=== PATIENT | male | born 1945 | race Caucasian/White ===

== ENCOUNTER 2020-11-05 21:42 | Observation (INO) | payer OTHER ==
--- OUTSIDE RECORDS SUMMARY | 2020-11-05 21:46 | XMS REPORT | Continuity of Care Document ---
:1945 Author Organization [facility] t Address [address] [place] [address] Care Team Providers Name Role Phone Asked, No Pcp Primary Care Physician Unavailable VANESA Attending Clinician Unavailable Payers Payer Name Policy Type Policy Effective Date Expiration Date Sour ce Number MEDICAREMEDICARE PART [id number] 2012 Jesus hank Barros AND 00:00:00 [facility] [id number] 2012[place] [place] COUSAA [id number] 2017 [place] LIFE INS 00:00:00 Restoration[facility] [id number] 2017- PresentCommercial Problems Condition Condition Condition Status Onset Resolution Last Treating Co mments Source Name Details Category Date Date Treatment Clinician Date 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 4-29 Family prostate Prostate 00:00: Practi c 00 e 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 Me thodi anterior anterior 00:00: st column of column of 00 spine 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 However the patient has multiple risk factors including age, family HX, untreated dyslipidem ia and HTN. His EKG showed abnormalit ies and he can not walk on the treadmill. Will order Lexiscan Cardiolite test to rule out ischemia. [facility] Hypertensi Problem Active 2013-06-09 M emoria on 21:45:35 l [place] Hypertensi on Active 06/09/2013 [facility] Carotid Problem Active 2013-06-09 Abdullahi basilia Bruit 21:45:35 l Carotid [place] Bruit Active 3 [facility] Murmurs Problem Active 2013-06-09 Abdullahi basilia 21:45:35 l Murmurs [place] Active 3 [facility] Cardiac Problem Active 2013-05-22 Abdullahi basilia Evaluation 17:15:25 l Nonspecifi Cardiac Her [place] c Abnormal Evaluation Findings Nonspecifi c Abnormal Findings Active 3 [facility] Fatigue Problem Active 2013-06-09 Abdullahi basilia 21:45:35 l Fatigue [place] Active 3 [facility] Bradycardi Problem Active 2020-08-20 emoria a, 05:10:27 l unspecifie Andrez n d Bradycardi a, unspecifie d Active Problem 08/20/2020 Aguilar Linda MD, PA Screening Problem Active 2020-08-20 Ms moria for 05:10:27 l cardiovasc Andrez n ular Screening disorders for cardiovasc ular disorders Active Problem 08/20/2020 Aguilar Linda MD, PA Chest Problem Active 2020-08-20 Memor ia pain, 05:10:27 l unspecifie Chest Simin nn d pain, unspecifie d Active Problem 08/20/2020 Aguilar Linda MD, PA Preoperati Problem Active 2020-08-20 M emoria ve cardiac 05:10:27 l clearance [facility]iva Preoperati ve cardiac clearance Active Problem 08/20/2020 Aguilar Linda MD, PA Mixed Problem Active 2020-08-20 Memor ia hyperlipid 05:10:27 l emia Mixed [facility]iva hyperlipid emia Active Problem 08/20/2020 Aguilar Linda MD, PA Allergies, Adverse Reactions, Alerts Allergy Allergy Status Severity Reaction(s) Onset Inactive Treating Comm ents Source Name Type Date Date Clinician Statins Statins Active Info Not 2018-09 Memori a Support Support Available 09-15 l 00:00: Captiva 00 Tamsulos Tamsulos Active Info Not 2018-09 Abdullahi basilia in HCl in HCl Available 09-15 l 00:00: [place] 00 Statins- Propensi Active Other (See 2017-09 [facility]ank [facility] ty to Comments) 09-28 pain Method i Reductas adverse 00:00: st e reaction 00 Inhibito s to rs drug Tamsulos Propensi Active Other (See 2017-09 Pain in [place] in ty to Comments) 09-28 jaw Methodi adverse 00:00: radiating st reaction 00 to head s to drug STATINS- Allergy Active [facility] to Family REDUCTAS substanc Practi c E e e INHIBITO RS Tamsulos Allergy Active [place] in to Family substanc Practic e e Not Not Active Memoria Known Known l [facility] Crestor Crestor Active Memoria TABS TABS l [facility] Family History Family Member Diagnosis Comments Start Date Stop Date Source Natural father Heart attack [facility] Natural mother Cancer [facility] thodist Unknown Family Family History 2013-06-09 2013-06-09 Memori al [place] Member 21:45:35 21:45:35 Social History Social Habit Start Date Stop Date Quantity Comments Source History of tobacco Current smoker Jesus mckinney Restorationist use Sex Assigned At [facility] ethodist Exposure to Not sure [facility] Metho dist SARS-CoV-2 (event) Cigarettes smoked 2018-09-15 2018-09-15 Perez Restoration[facility] current (pack per 00:00:00 00:00:00 day) - Reported Cigarette 2018-09-15 2018-09-15 Perez Method ist pack-years 00:00:00 00:00:00 Tobacco use and 2018-09-15 2018-09-15 Never used [facility] ethodist exposure 00:00:00 00:00:00 Alcohol intake 2018-09-15 2018-09-15 Current drinker [place] [facility] 00:00:00 00:00:00 of alcohol (finding) Alcohol Comment 2018-08-06 2018-08-06 frequent Chris Turner ethodist 00:00:00 00:00:00 Social History 2013-06-09 2013-06-09 [facility] ermann 21:45:35 21:45:35 Smoking Status Start Date Stop Date Source Never Smoker Roxanne goetz Former smoker 2018-09-15 00:00:00 2018-09-15 00:00:00 Chris Lee Medications Ordered Filled Start Stop Current Ordering Indication Dosage Frequency Signature Comments Components Source Medication Medication Date Date Medication? Clinician (SIG) Name Name Finasteride 2019-09 Yes Aguilar 1 tablet M emoria 2-19 Marwan l 05:10: Maddi Garg Atorvastati 2019-09 Yes Aguilar 1 tablet M emoria n Calcium 2-19 Marwan l 05:10: Maddi Garg Acetaminoph 2019-09 Yes Aguilar 1 capsule Memoria en -19 Marwan as needed l 05:10: Maddi Garg terazosin Yes 5mg QD Take 5 mg Marli ston (HYTRIN) 5 1-12 by mouth Metho di MG capsule 13:40: nightly. st 29 multivitami Yes 1{tbl} QD Take 1 [place] 1-12 tablet by Methodi (THERAGRAN) 13:40: mouth st tablet 29 daily. Multivitami 2012-09 Yes (Active) M emoria ns CAPS 0-08 l 21:45: [place] 35 Vitamin C 2012-09 Yes (Active) Mem oria CAPS 0-08 l 21:45: [place] 35 Vitamin D3 2012-09 Yes (Active) Me moria TABS 0-08 l 21:45: Captiva 35 Apple Cider 2012-09 Yes (Active) M emoria Vinegar 0-08 l Plus TABS 21:45: [facility]iva 35 Atorvastati 2012-09 Yes (Active) M emoria n Calcium 0-08 l 10 MG Oral 21:45: Captiva Tablet 35 Nitrostat Yes ; Start Memor ia 0.4 MG 05-13 Date: l Sublingual 05:00: 05/13/2013 H ermann Tablet 00 ; End Sublingual Date: (Active) No Active Yes No Active Mem oria Medications 04-10 Medication l 16:11: s Captiva 05 Atorvastati Yes ; Start Mem oria n Calcium 04-10 Date: l 10 MG Oral 05:00: 04/10/2013 H ermann Tablet 00 ; End Date: (Active) Lisinopril Yes ; Start Abdullahi basilia 5 MG Oral 04-10 Date: l Tablet 05:00: 04/10/2013 Simin nn 00 ; End Date: (Active) acetaminoph acetaminoph No [address] [facility] en 500 mg en 500 mg hen 500 mg Family tablet Take tablet Take tablet Practic 1 tablet by 1 tablet by Take 1 e oral route oral route tablet by as needed. as needed. oral route as needed. Acidophilus Acidophilus No Acidophilu [place] Probiotic Probiotic s Famil y one daily one daily Probiotic Practic one daily e Complete Complete No 1 Q1D Complete Yin candelario Multivitami Multivitami Multivitam Family n Adult 50 n Adult 50 in Adult Practic Plus 0.4 Plus 0.4 50 Plus e mg-300 mg-300 0.4 mg-300 mcg-250 mcg mcg-250 mcg mcg-250 tablet Take tablet Take mcg tablet 1 tablet 1 tablet Take 1 every day every day tablet by oral by oral every day route. route. by oral route. [facility]. [facility]. No 1mg Q1D [facility] e Gustafson Wort Gustafson Wort Gustafson Wort Family 150 mg 150 mg 150 mg Practic capsule capsule capsule e Take 1 mg Take 1 mg Take 1 mg every day every day every day by oral by oral by oral route. route. route. FV Vitamin FV Vitamin No 1mg Q1D FV Vitamin [facility] C 1000 mg C 1000 mg C 1000 mg Family tablet Take tablet Take tablet Practic 1 mg every 1 mg every Take 1 mg e day by oral day by oral every day route. route. by oral route. Glucosamine Glucosamine No Glucosamin [place] 1500 1500 e 1500 Family Complex one Complex one Complex Practic a day with a day with one a day e msm 1500mgs msm 1500mgs with msm 1500mgs ibuprofen ibuprofen No [address] [facility] 200 mg 200 mg 200 mg Family tablet Take tablet Take tablet Practic 1 tablet by 1 tablet by Take 1 e oral route oral route tablet by as needed. as needed. oral route as needed. Prostate Prostate No Prostate Yin candelario Health one Health one Health one Family a day daily a day daily a day Practic daily e Vitamin B12 Vitamin B12 No 1microg Q1D Vitamin [facility] 100 mcg 100 mcg mara(s) B12 100 Fami ly tablet Take tablet Take mcg tablet Practic 1 microgram 1 microgram Take 1 e every day every day microgram by oral by oral every day route. route. by oral route. Vitamin D3 Vitamin D3 No 1microg Q1D Vitamin D3 [facility] 125 mcg 125 mcg mara(s) 125 mcg Fami ly (5,000 (5,000 (5,000 Practic unit) unit) unit) e tablet Take tablet Take tablet 1 microgram 1 microgram Take 1 every day every day microgram by oral by oral every day route. route. by oral route. Immunizations Ordered Immunization Filled Immunization Date Status Commen ts Source Name Name [employer] COVID-19 MRNA 2020-10-20 Completed [place] VACCINATION 00:00:00 [facility]oration[facility] pneumococcal, pneumococcal, 2020-06-21 Completed [facility] unspecified unspecified 00:00:00 Practice formulation formulation influenza, influenza, 2020-06-21 Completed [facility] injectable, injectable, 00:00:00 Practice quadrivalent quadrivalent Vital Signs Vital Name Observation Time Observation Value Comments Source BP Diastolic 2020-07-18 00:00:00 88 mm[Hg] [place] Height 2020-07-18 00:00:00 72 [in_i] [place] BMI (Body Mass 2020-07-18 00:00:00 31.5 kg/m2 [facility] Family Index) Practice BP Systolic 2020-07-18 00:00:00 145 mm[Hg] [place] Body Weight 2020-07-18 00:00:00 232 [lb_av] [place] Height 2019-12-30 00:00:00 72 [in_i] [place] BMI (Body Mass 2019-12-30 00:00:00 31.2 kg/m2 [facility] Family Index) Practice Body Weight 2019-12-30 00:00:00 230 [lb_av] [place] Weight 2019-07-16 19:15:00 Helga Garg Heart Rate 2019-07-16 19:15:00 Helga Garg Diastolic (mm Hg) 2019-07-16 19:15:00 Negro Garg Systolic (mm Hg) 2019-07-16 19:15:00 Abdullahi rial [facility] Procedures Procedure Date / Time Performed Performing Clinician Sourc e bone density 2020-07-18 00:00:00 [facility] Fami ly Practice Tonsillectomy [facility] Family P ractice Procedure on Spine [facility] Famil y Practice Plan of Care Planned Activity Planned Date Details Comments Source Future Scheduled Test 2020-11-10 COVID-19 VACCINE (2 [facility] 00:00:00 of 2 - Pfizer series) [code = COVID-19 VACCINE (2 of 2 - Pfizer series)] Diagnostic Test 2020-07-18 CMP, serum or plasma Vill age Family Pending 00:00:00 [code = CMP, serum or Practi ce plasma] Diagnostic Test 2020-07-18 lipid panel, serum Villag e Family Pending 00:00:00 [code = lipid panel, Practic e serum] Diagnostic Test 2020-07-18 CBC w/ auto diff [facility] Family Pending 00:00:00 [code = CBC w/ auto Practice diff] Future Scheduled Test 2020-04-02 INFLUENZA VACCINE H doreen Lee 00:00:00 [code = INFLUENZA VACCINE] Future Scheduled Test 2013-06-09 Plan of Care [code = [facility] 21:45:35 26619-5] Future Scheduled Test 2013-04-10 Plan of Care [code = [facility] 20:06:12 97176-7] Future Scheduled Test 2012 65+ PNEUMOCOCCAL Ho [facility] Restorationist 00:00:00 VACCINE (1 of 1 - PPSV23) [code = 65+ PNEUMOCOCCAL VACCINE (1 of 1 - PPSV23)] Future Scheduled Test 1997 COLONOSCOPY SCREENING Perez [facility]orationist 00:00:00 [code = COLONOSCOPY SCREENING] Future Scheduled Test 1997 SHINGLES VACCINES Count includes the [facility] Restorationist 00:00:00 (#1) [code = SHINGLES VACCINES (#1)] Future Scheduled Test 1965 Hepatitis C screening [facility] 00:00:00 (procedure) [code = 454762045] Instructions [facility] Family Practice Encounters Start End Encounter Admission Attending Care Care Encounter Source Date/Time Date/Time Type Type Clinicians Facility Department ID 2020-10-20 2020-10-20 Outpatient [facility] [id number] [facility] 00:00:00 00:00:[address] 2020-08-19 2020-08-19 Outpatient Aguilar Sheikh [id number] eClinic 09:00:00 09:00:00 Maddi Linda Md al [facility] 2020-07-18 2020-07-18 [place] [facility] [place] - [id number] V illage 00:00:00 00:00:00 [facility] ctic MD: [address] [facility] [place] [address] , [address], [place] [address] , Ph. 2019-12-30 2019-12-30 [place] [facility] [place] - [id number] V illage 00:00:00 00:00:00 [facility] ctwes MD: [address] [facility] [address], [address], [place] [address] , Ph. 2019-10-23 2019-10-23 Outpatient [facility] [id number] [facility] 00:00:00 00:00:[address] 2019-07-29 2019-07-29 Outpatient [facility] [id number] eClinic 14:00:00 14:00:00 Maddi Linda Md al Works [facility] 2019-07-23 2019-07-23 Outpatient [facility] Aguilar [id number] eClinic 10:30:00 10:30:00 Maddi Linda Md al Works [facility] Pa 2019-07-16 2019-07-16 Outpatient [facility] [id number] eClinic 13:15:00 13:15:00 Maddi Linda Md al Works [facility] Pa 2019-06-24 2019-06-24 Emergency E [facility] [id number] MH 16:26:00 16:26:[address] [facility] [facility] 2019-02-11 2019-02-11 Outpatient [facility] [id number] MH 05:50:00 05:50:[address] [facility] 2013-06-09 2013-06-09 Outpatient 3 [id number] 16:45:36 16:45:35 2013-05-22 2013-05-22 Outpatient 3 3 [id number] 12:15:25 12:15:25 2013-05-08 2013-05-08 Outpatient 3 3 [id number] 08:15:21 08:15:21 2013-04-10 2013-04-10 Outpatient 3 3 [id number] 15:06:33 15:06:12 2013-04-10 2013-04-10 Outpatient 3 3 [id number] 11:11:29 11:11:05 Results This patient has no known results.
[2020-11-06 00:29] LABS: Basophils % 1.1 % (0-1.3); Hematocrit 41.5 % (39.6-49.0); Lymphocytes % 30.2 % (15.3-44.8); MPV 8.8 fL (7.6-11.3)
[2020-11-06 00:30] LABS: Protime INR 0.9
[2020-11-06 00:49] LABS: ALT/SGPT 26 U/L (12-78); AST/SGOT 19 U/L (15-37); Albumin 3.9 g/dL (3.4-5.0); Alkaline Phosphatase 63 U/L (45-117); BUN Blood Urea Nitrogen 14 mg/dL (7-18); Bicarbonate 31 mmol/L (21-32); Bilirubin Direct 0.1 mg/dL (0-0.2); Bilirubin Total 0.4 mg/dL (0.2-1.0); Glucose Level 84 mg/dL (74-106); Magnesium 2.5 mg/dL (1.8-2.4); NT PRO-BNP 134 pg/mL (<125); Potassium 3.8 mmol/L (3.5-5.1); Protein, Total 7.2 g/dL (6.4-8.2); Sodium Level 144 mmol/L (136-145); Troponin (Emerg Dept Use Only) < 0.02 ng/mL (0.0-0.045)
--- NOTE | 2020-11-06 02:14 | ER ---
Nurse's Notes [facility] Name: Vincent Hurd Age: 75 yrs Sex: Male : 1945 Arrival Date: 11/05/2020 Time: 21:45 Bed 23 Private MD: Diagnosis: Chest pain, unspecified Presentation: 11/05 21:45 Chief complaint: Patient states: Chest pain started at 1300 today. Midsternal, ca1 intermittent, radiates to the L shoulder and L arm, has gotten worse since. Hurts worse with deep breathing and certain movements. Coronavirus screen: Client denies travel out of the [place] in the last 14 days. At this time, the client does not indicate any symptoms associated with coronavirus-19. Ebola Screen: Patient negative for fever greater than or equal to 101.5 degrees Fahrenheit, and additional compatible Ebola Virus Disease symptoms Patient denies exposure to infectious person. Patient denies travel to an Ebola-affected area in the 21 days before illness onset. No symptoms or risks identified at this time. Initial Sepsis Screen: Does the patient meet any 2 criteria? No. Patient's initial sepsis screen is negative. Does the patient have a suspected source of infection? No. Patient's initial sepsis screen is negative. Risk Assessment: Do you want to hurt yourself or someone else? Patient reports no desire to harm self or others. Onset of symptoms was November 05, 2020 at 13:00. 21:45 Method Of Arrival: Ambulatory ca1 21:45 Acuity: MEY 3 ca1 Historical: - Allergies: 21:50 TAMSULOSIN; ca1 21:50 Statin drugs; ca1 - PMHx: 21:50 Prostate Ca; High Cholesterol; ca1 - PSHx: 21:50 neck surgery; ca1 - Immunization history:: Adult Immunizations up to date, Client reports receiving the 1st dose of the Covid vaccine, Pneumococcal vaccine is up to date, Flu vaccine is up to date. - Social history:: Smoking status: Patient denies any tobacco usage or history of. Screenin:20 Abuse screen: Denies threats or abuse. Denies injuries from another. Nutritional sf screening: No deficits noted. Tuberculosis screening: No symptoms or risk factors identified. Never had TB. Possible symptoms: None Risk factors: None. Fall Risk None identified. No fall in past 12 months (0 pts). No secondary diagnosis (0 pts). IV access (20 points). Ambulatory Aid- None/Bed Rest/Nurse Assist (0 pts). Gait- Normal/Bed Rest/Wheelchair (0 pts) Mental Status- Oriented to own ability (0 pts). Total Louise Fall Scale indicates No Risk (0-24 pts). Assessment: 23:20 General: Appears in no apparent distress. comfortable, Behavior is calm, cooperative, sf appropriate for age. Pain: Complains of pain in anterior aspect of left upper chest Pain radiates to left scapular area and anterior aspect of left shoulder Pain began gradually, Aggravated by increased activity, repositioning. Neuro: No deficits noted. Level of Consciousness is awake, alert, Oriented to person, place, time, situation, Appropriate for age. Cardiovascular: Reports chest pain, Denies diaphoresis, fatigue, lightheadedness, nausea, palpitations, shortness of breath, syncope, Capillary refill < 3 seconds Patient's skin is warm and dry. Rhythm is sinus bradycardia with 1st degree heart block. Respiratory: Reports pain with movement pain with respiration Airway is patent Respiratory effort is even, unlabored, Respiratory pattern is regular, symmetrical, Denies cough, shortness of breath labored breathing. GI: No signs and/or symptoms were reported involving the gastrointestinal system. : No signs and/or symptoms were reported regarding the genitourinary system. Derm: No deficits noted. No signs and/or symptoms reported regarding the dermatologic system. Skin is pink, warm \T\ dry. 23:20 EENT: Eyes with exudate noted from right inner canthus and left inner canthus. 11/06 00:07 Reassessment: Patient appears in no apparent distress at this time. No changes from sf previously documented assessment. Patient and/or family updated on plan of care and expected duration. Pain level reassessed. Patient is alert, oriented x 3, equal unlabored respirations, skin warm/dry/pink. 01:02 Reassessment: Patient appears in no apparent distress at this time. No changes from sf previously documented assessment. Patient and/or family updated on plan of care and expected duration. Pain level reassessed. Patient is alert, oriented x 3, equal unlabored respirations, skin warm/dry/pink. 02:09 Reassessment: Patient appears in no apparent distress at this time. No changes from sf previously documented assessment. Patient and/or family updated on plan of care and expected duration. Pain level reassessed. Patient is alert, oriented x 3, equal unlabored respirations, skin warm/dry/pink. Patient states feeling better. 03:30 Reassessment: Patient appears in no apparent distress at this time. No changes from sf previously documented assessment. Patient and/or family updated on plan of care and expected duration. Pain level reassessed. Patient is alert, oriented x 3, equal unlabored respirations, skin warm/dry/pink. 04:31 Reassessment: Patient appears in no apparent distress at this time. No changes from sf previously documented assessment. Patient and/or family updated on plan of care and expected duration. Pain level reassessed. Patient is alert, oriented x 3, equal unlabored respirations, skin warm/dry/pink. Vital Signs: 11/05 21:45 BP 134 / 86; Pulse 65; Resp 16 S; Temp 97.4(TE); Pulse Ox 98% on R/A; Weight 104.33 kg ca1 (R); Height 6 ft. 0 in. (182.88 cm) (R); Pain 4/10; 23:14 BP 125 / 66; Pulse 60; Resp 18; Pulse Ox 97% ; sf 23:30 BP 120 / 73; Pulse 57; Resp 18; Pulse Ox 97% ; sf 07 00:00 BP 122 / 69; Pulse 56; Resp 18; Pulse Ox 95% ; sf 00:30 BP 124 / 82; Pulse 60; Resp 18; Pulse Ox 95% ; sf 01:00 BP 117 / 69; Pulse 54; Resp 18; Pulse Ox 96% ; sf 02:00 BP 114 / 69; Pulse 56; Resp 18; Pulse Ox 95% ; sf 02:30 BP 127 / 72; Pulse 55; Resp 18; Pulse Ox 96% ; sf 03:00 BP 131 / 67; Pulse 57; Resp 18; Pulse Ox 97% ; sf 03:30 BP 132 / 78; Pulse 59; Resp 16; Pulse Ox 97% ; sf 04:00 BP 118 / 64; Pulse 50; Resp 16; Pulse Ox 93% ; sf 05:00 BP 128 / 81; Pulse 58; Resp 16; Pulse Ox 95% ; sf 03/ 21:45 Body Mass Index 31.19 (104.33 kg, 182.88 cm) ca1 Vitals: 04:31 Cardiac Rhythm Assessment Sinus mechelle. ED Course: 06 21:45 Patient arrived in ED. ca1 21:48 Triage completed. ca1 21:50 Arm band placed on right wrist. ca1 23:05 Filiberto Roberson MD is Attending Physician. [facility] 23:14 Royce Akins, LUZ MARINA is Primary Nurse. sf 23:18 Patient has correct armband on for positive identification. Placed in gown. Bed in low sf position. Call light in reach. Side rails up X 1. teletypesetter monitor on. Pulse ox on. NIBP on. Door closed. Noise minimized. Visitors limited. Verbal reassurance given. 23:20 Patient maintains SpO2 saturation greater than 95% on room air. 23:55 Initial lab(s) drawn, by ms, sent to lab. Inserted saline lock: 20 gauge in right sf antecubital area, using aseptic technique. Blood collected. 11/06 00:01 Basic Metabolic Panel Sent. 00:08 XRAY Chest (1 view) Sent. 00:14 XRAY Chest (1 view) In Process Unspecified. EDMS 02:12 Brian Patel MD is Hospitalizing Provider. [facility] 02:17 No provider procedures requiring assistance completed. Patient admitted, IV remains in sf place. 02:45 COVID swab sent to lab. 02:52 CORONAVIRUS Sent. 03:33 CORONAVIRUS Sent. Administered Medications: 02:53 Drug: Aspirin Chewable Tablet 324 mg Route: PO; 03:34 Follow up: Response: No adverse reaction Outcome: 02:12 Instructed on the need for admit, by YAYO Beckett 02:13 Decision to Hospitalize by Provider. [facility] 05:13 Admitted to Tele accompanied by tech, via wheelchair, room 230, Report called to sf LUZ MARINA Novak 05:13 Condition: stable 05:36 Patient left the ED. Signatures: Dispatcher [employer] EDIN Laurie Romo RN RN [facility] Filiberto Roberson MD MD [facility] Royce Akins, LUZ MARINA RN Corrections: (The following items were deleted from the chart) 11/05 23:41 23:20 Cardiovascular: Reports chest pain, Denies diaphoresis, fatigue, lightheadedness, sf nausea, palpitations, shortness of breath, syncope, Capillary refill < 3 seconds Patient's skin is warm and dry. Rhythm is sinus rhythm with 1st degree heart block sf 11/06 03:32 03 23:20 : No signs and/or symptoms were reported regarding the genitourinary sf system. sf
--- NOTE | 2020-11-06 02:14 | EDPHYS ---
Physician Documentation [facility] Name: Vincent Hurd Age: 75 yrs Sex: Male : 1945 Arrival Date: 11/05/2020 Time: 21:45 Bed 23 Private MD: ED Physician Filiberto Roberson HPI: 11/05 23:58 This 75 yrs old Male presents to ER via Ambulatory with complaints of Chest Pain > 30 mh7 y/o. 23:58 The patient or guardian reports chest pain that is located primarily in the anterior mh7 chest wall, left. Onset: today. The pain radiates to the left shoulder. 23:58 Associated signs and symptoms: Pertinent negatives: abdominal pain, cough, diaphoresis, mh7 dizziness, headache, lower extremity pain, lower extremity swelling, lightheadedness, nausea, near syncope, palpitations, recent travel, shortness of breath, syncope, vomiting. The chest pain is described as sharp. Duration: The patient or guardian reports multiple episodes, that are intermittent, that wax and wane. Modifying factors: The symptoms are alleviated by nothing. the symptoms are aggravated by nothing. Severity of pain: At its worst the pain was moderate today, in the emergency department the pain has improved moderately. Historical: - Allergies: 21:50 TAMSULOSIN; ca1 21:50 Statin drugs; ca1 - PMHx: 21:50 Prostate Ca; High Cholesterol; ca1 - PSHx: 21:50 neck surgery; ca1 - Immunization history:: Adult Immunizations up to date, Client reports receiving the 1st dose of the Covid vaccine, Pneumococcal vaccine is up to date, Flu vaccine is up to date. - Social history:: Smoking status: Patient denies any tobacco usage or history of. ROS: 23:58 Constitutional: Negative for fever, chills, and weight loss, Eyes: Negative for injury, mh7 pain, redness, and discharge, ENT: Negative for injury, pain, and discharge, Neck: Negative for injury, pain, and swelling, Abdomen/GI: Negative for abdominal pain, nausea, vomiting, diarrhea, and constipation, Back: Negative for injury and pain, : Negative for injury, bleeding, discharge, and swelling, MS/Extremity: Negative for injury and deformity, Skin: Negative for injury, rash, and discoloration, Neuro: Negative for headache, weakness, numbness, tingling, and seizure, Psych: Negative for depression, anxiety, suicide ideation, homicidal ideation, and hallucinations, Allergy/Immunology: Negative for hives, rash, and allergies, Endocrine: Negative for neck swelling, polydipsia, polyuria, polyphagia, and marked weight changes, Hematologic/Lymphatic: Negative for swollen nodes, abnormal bleeding, and unusual bruising. Exam: 23:58 Constitutional: This is a well developed, well nourished patient who is awake, alert, mh7 and in no acute distress. Head/Face: Normocephalic, atraumatic. Eyes: Pupils equal round and reactive to light, extra-ocular motions intact. Lids and lashes normal. Conjunctiva and sclera are non-icteric and not injected. Cornea within normal limits. Periorbital areas with no swelling, redness, or edema. Neck: Trachea midline, no thyromegaly or masses palpated, and no cervical lymphadenopathy. Supple, full range of motion without nuchal rigidity, or vertebral point tenderness. No Meningismus. Chest/axilla: Normal chest wall appearance and motion. Nontender with no deformity. No lesions are appreciated. Cardiovascular: Regular rate and rhythm with a normal S1 and S2. No gallops, murmurs, or rubs. Normal PMI, no JVD. No pulse deficits. Respiratory: Lungs have equal breath sounds bilaterally, clear to auscultation and percussion. No rales, rhonchi or wheezes noted. No increased work of breathing, no retractions or nasal flaring. Abdomen/GI: Soft, non-tender, with normal bowel sounds. No distension or tympany. No guarding or rebound. No evidence of tenderness throughout. Back: No spinal tenderness. No costovertebral tenderness. Full range of motion. Skin: Warm, dry with normal turgor. Normal color with no rashes, no lesions, and no evidence of cellulitis. MS/ Extremity: Pulses equal, no cyanosis. Neurovascular intact. Full, normal range of motion. Neuro: Awake and alert, GCS 15, oriented to person, place, time, and situation. Cranial nerves II-XII grossly intact. Motor strength 5/5 in all extremities. Sensory grossly intact. Cerebellar exam normal. Normal gait. Psych: Awake, alert, with orientation to person, place and time. Behavior, mood, and affect are within normal limits. Vital Signs: 21:45 BP 134 / 86; Pulse 65; Resp 16 S; Temp 97.4(TE); Pulse Ox 98% on R/A; Weight 104.33 kg ca1 (R); Height 6 ft. 0 in. (182.88 cm) (R); Pain 4/10; 23:14 BP 125 / 66; Pulse 60; Resp 18; Pulse Ox 97% ; sf 23:30 BP 120 / 73; Pulse 57; Resp 18; Pulse Ox 97% ; sf 03 00:00 BP 122 / 69; Pulse 56; Resp 18; Pulse Ox 95% ; sf 00:30 BP 124 / 82; Pulse 60; Resp 18; Pulse Ox 95% ; sf 01:00 BP 117 / 69; Pulse 54; Resp 18; Pulse Ox 96% ; sf 02:00 BP 114 / 69; Pulse 56; Resp 18; Pulse Ox 95% ; sf 02:30 BP 127 / 72; Pulse 55; Resp 18; Pulse Ox 96% ; sf 03:00 BP 131 / 67; Pulse 57; Resp 18; Pulse Ox 97% ; sf 03:30 BP 132 / 78; Pulse 59; Resp 16; Pulse Ox 97% ; sf 04:00 BP 118 / 64; Pulse 50; Resp 16; Pulse Ox 93% ; sf 05:00 BP 128 / 81; Pulse 58; Resp 16; Pulse Ox 95% ; sf 03/06 21:45 Body Mass Index 31.19 (104.33 kg, 182.88 cm) ca1 MDM: 02:10 Differential diagnosis: acute myocardial infarction, acute pericarditis, anxiety, mh7 coronary artery disease chest wall pain, congestive heart failure costochondritis. HEART Score: History: Moderately Suspicious (1), ECG: Non specific repolarization disturbance / LBTB / PM (1), Age: > or = 65 years (2), Risk Factors: 1 or 2 risk factors (1), [Hypercholesterolemia] Troponin: < or = 1 x Normal Limit (0), Total Score = 5. Data reviewed: vital signs, nurses notes, lab test result(s), cardiac enzymes, CBC, electrolytes, EKG, radiologic studies, plain films. Data interpreted: Pulse oximetry: on room air is 95 %. Interpretation: normal. Counseling: I had a detailed discussion with the patient and/or guardian regarding: the historical points, exam findings, and any diagnostic results supporting the discharge/admit diagnosis, lab results, radiology results, the need for further work-up and treatment in the hospital. 02:13 Patient medically screened. [facility] 11/05 23:49 Order name: Basic Metabolic Panel [facility] 11/05 23:49 Order name: CBC with Diff; Complete Time: 01:43 [facility] 11/05 23:49 Order name: LFT's; Complete Time: 01:43 [facility] 11/05 23:49 Order name: Magnesium; Complete Time: 01:43 [facility] 11/05 23:49 Order name: NT PRO-BNP; Complete Time: 01:43 [facility] 11/05 23:49 Order name: PT-INR; Complete Time: 01:43 [facility] 11/05 23:49 Order name: Troponin (emerg Dept Use Only); Complete Time: 01:43 [facility] 11/05 23:49 Order name: XRAY Chest (1 view) [facility] 11/05 23:49 Order name: Basic Metabolic Panel; Complete Time: 01:43 [facility] 11/06 02:48 Order name: [facility] 11/06 03:22 Order name: [facility] 11/06 04:27 Order name: SARS-COV-2 RT PCR [facility] 11/05 23:49 Order name: EKG; Complete Time: 23:50 [facility] 11/05 23:49 Order name: Cardiac monitoring; Complete Time: 23:52 [facility] 11/05 23:49 Order name: EKG - Nurse/Tech; Complete Time: 23:52 [facility] 11/05 23:49 Order name: IV Saline Lock; Complete Time: 00:01 [facility] 11/05 23:49 Order name: Labs collected and sent; Complete Time: 00:01 [facility] 11/05 23:49 Order name: O2 Per Protocol; Complete Time: 23:52 [facility] 11/05 23:49 Order name: O2 Sat Monitoring; Complete Time: 23:52 7 Administered Medications: 02:53 Drug: Aspirin Chewable Tablet 324 mg Route: PO; sf 03:34 Follow up: Response: No adverse reaction sf Disposition: 11/06/20 02:13 Hospitalization ordered by Brian Patel for Observation. Preliminary diagnosis is Chest pain, unspecified. - Bed requested for Telemetry/MedSurg (observation). - Status is Observation. sf - Condition is Stable. - Problem is new. - Symptoms have improved. Signatures: Dispatcher [employer] EDMS Faviola Sujit, MAIL TELLER-C MAIL TELLER-Cla1 Anum Vaca RN RN Laurie Romo RN RN [facility] Filiberto Roberson MD [facility] Royce Akins RN RN sf Corrections: (The following items were deleted from the chart) 04:39 02:13 Hospitalization Ordered by Brian Patel MD for Observation. Preliminary cg diagnosis is Chest pain, unspecified. Bed requested for Telemetry/MedSurg (observation). Status is Observation. Condition is Stable. Problem is new. Symptoms have improved. [facility] 05:36 04:39 11/06/2020 02:13 Hospitalization Ordered by Brian Patel MD for Observation. sf Preliminary diagnosis is Chest pain, unspecified. Bed requested for Telemetry/MedSurg (observation). Status is Observation. Condition is Stable. Problem is new. Symptoms have improved. cg
--- NOTE | 2020-11-06 02:41 | P.HP ---
Certification for Inpatient Patient admitted to: Observation With expected LOS: <2 Midnights Patient will require the following post-hospital care: None Practitioner: I am a practitioner with admitting privileges, knowledge of patient current condition, hospital course, and medical plan of care. Services: Services provided to patient in accordance with Admission requirements found in Title 42 Section 412.3 of the Code of Federal Regulations <Sujit Salmeron - Last Filed: 11/06/20 02:38> Patient History Date of Service: 11/06/20 Primary Care Provider: FELICITAS Reason for admission: Chest pain History of Present Illness: 75-year-old male with history of hyperlipidemia, prostate cancer presents emergency department for chest pain. Patient reports that he is driving in his vehicle around 1:00 a.m. when he began to experience some left- sided substernal chest pain. Patient reports pain was sharp, radiating to back and left shoulder blade without any associated shortness of breath/dizziness/nausea/diaphoresis/syncope. Patient reports he had a heart catheterization 2012 with just mild disease no need for stenting, had stress test earlier this year that was unremarkable. Initial workup in emergency department unremarkable, EKG without acute changes, troponin negative, chest x- ray unremarkable. Patient given 324 aspirin emergency department ED provider wishes to admit for further evaluation and management. When I saw the patient in ER he is awake, alert, oriented x3. Patient not exp eriencing chest pain at this time. Reports history of prostate cancer the slow- growing and is being observed at this time. Also reports he has intolerance to statins with muscle pain. Patient does report that he has tolerated a particular statin at 8 3 times a week dose but was unable to tell me which status is. - Past Medical/Surgical History Diabetic: No -: Hyperlipidemia -: Prostate cancer -: Cervical spine surgery Psychosocial/ Personal History: Patient is retired, lives with his family - Social History Smoking Status: Never smoker Alcohol use: Yes CD- Drugs: No Caffeine use: Yes Place of Residence: Home <Sujit Salmeron - Last Filed: 11/06/20 02:38> Date of Service: 11/06/20 <Brian Patel - Last Filed: 11/06/20 20:35> Review of Systems 10-point ROS is otherwise unremarkable Cardiovascular: Chest Pain, As per HPI Genitourinary: Frequency <Sujit Salmeron - Last Filed: 11/06/20 02:38> Physical Examination - Physical Exam General: Alert, In no apparent distress HEENT: Atraumatic, PERRLA, Mucous membr. moist/pink Neck: Supple, 2+ carotid pulse no bruit, No LAD Respiratory: Clear to auscultation bilaterally, Normal air movement Cardiovascular: Regular rate/rhythm, Normal S1 S2 Gastrointestinal: Normal bowel sounds, No tenderness Musculoskeletal: No tenderness Integumentary: No rashes Neurological: Normal speech, Normal strength at 5/5 x4 extr, Normal tone - Studies Laboratory Data (last 24 hrs) 11/05/20 23:55: PT 10.3, INR 0.90 11/05/20 23:55: WBC 6.60, Hgb 14.1, Hct 41.5, Plt Count 217 11/05/20 23:55: Sodium 144, Potassium 3.8, BUN 14, Creatinine 0.77, Glucose 84, Magnesium 2.5 H, Total Bilirubin 0.4, AST 19, ALT 26, Alkaline Phosphatase 63 <Sujit Salmeron - Last Filed: 11/06/20 02:38> - Studies Laboratory Data (last 24 hrs) 11/05/20 23:55: PT 10.3, INR 0.90 11/05/20 23:55: WBC 6.60, Hgb 14.1, Hct 41.5, Plt Count 217 11/05/20 23:55: Sodium 144, Potassium 3.8, BUN 14, Creatinine 0.77, Glucose 84, Magnesium 2.5 H, Total Bilirubin 0.4, AST 19, ALT 26, Alkaline Phosphatase 63 <Brian Patel - Last Filed: 11/06/20 20:35> Assessment and Plan - Plan Assessment Chest pain rule out ACS Hyperlipidemia Prostate cancer Plan Chest pain rule out ACS: Last heart catheterization 2012 with mild disease last stress test earlier this year and normal . Trend troponins, monitor on telemetry, cardiology consult in place. Continue daily aspirin, patient not tolerant of statin due to muscle pain but reports there is 1 particular statin he can tolerate taking 3 times a week, will need to obtain and verify this home medication. Will hold off on beta nehemiah as patient is resting heart rate appears to be around 55. Appreciate further input from cardiology. Hyperlipidemia: Lipid panel with morning labs, obtain and continue home medicine. Prostate cancer: Apparently is slow-growing in nature and being observed, stable this time. Discharge Plan: Home Plan to discharge in: 24 Hours - Advance Directives Does patient have a Living Will: No Does patient have a Durable POA for Healthcare: No - Code Status/Comfort Care Code Status Assessed: Yes (Full code) Critical Care: No Time Spent Managing Pts Care (In Minutes): 55 <Sujit Salmeron - Last Filed: 11/06/20 02:38> - Plan Plan of care reviewed as noted above by Sujit Salmeron. Trend troponins, monitor telemetry <Brian Patel - Last Filed: 11/06/20 20:35>
[2020-11-06] MEDS ORDERED: ASPIRIN 81 MG CHEWABLE TABLET ONE (03:09)
[2020-11-06 05:49] VITALS: BMI 31.4
[2020-11-06] MEDS ORDERED: ONDANSETRON 4 MG/2 ML VIAL IV PRN (05:54)
[2020-11-06 06:45] VITALS: O2SAT 98
[2020-11-06 07:37] LABS: HDL Cholesterol 49 mg/dL (40-60); LDL Cholesterol, Calculated 140 (<130); Troponin I < 0.02 ng/mL (0.0-0.045)
[2020-11-06] MEDS ORDERED: ENOXAPARIN 40 MG/0.4 ML SQ SCH (09:00)
[2020-11-06] MEDS ORDERED: ASPIRIN EC 81 MG TAB PO SCH (09:00)
[2020-11-06 10:38] VITALS: BP 120/62; TEMP 97.3
--- NOTE | 2020-11-06 13:33 | RAD REPORT ---
EXAM DESCRIPTION: RAD - Chest Single View - 11/06/2020 12:14 am CLINICAL HISTORY: CHEST PAIN Chest pain. COMPARISON: No comparisons FINDINGS: Portable technique limits examination quality. The lungs are emphysematous but grossly clear. The heart is normal in size. No displaced fractures. IMPRESSION: No acute intrathoracic process suspected.
--- NOTE | 2020-11-06 15:55 | CON ---
Date of Consultation: 11/06/2020 Reason For Consultation: Chest pain. History Of Present Illness: A 75-year-old male with history of dyslipidemia, prostate cancer, presen miller with chest pain. He was doing some labor work at his house, had started having some chest pain, sharp, close to the shoulder and left arm, started yesterday afternoon. He presented to the emergenc y room and his cardiac enzymes have been negative. Since he had been in the hospital, he had 1 more episode. He reported having normal stress test back in August of last year. Also reported, a emily nary angiogram in 2012 with mild coronary artery disease. Past Medical History: Dyslipidemia, prostate cancer, mild coronary artery disease. Medications: Refer to reconciliation sheet for detailed list. Allergies: STATINS. Past Surgical History: Cervical spine surgery. Social History: Does not smoke or drink. Does not use any drugs. Review of Systems: All systems reviewed and they were negative except what mentioned in the HPI. Physical Examination: Vital Signs: Temperature is 97.3, pulse 58, breathing at 18, blood pressure 120/62, saturating 97% o n room air. General: Pleasant elderly male, in no apparent distress. Head and Neck: Pupils are equal, reactive to light. Intact eye movements. No JVD. No cervical lym phadenopathy. Neck: Supple. Thyroid is not enlarged. Lungs: Clear to auscultation bilaterally. No rhonchi, rales, or crackles. No accessory muscle use. Heart: Regular rate and rhythm. No extra sounds. Abdomen: Soft, nontender. Bowel sounds positive. No organomegaly. No masses or hernia. No rigidi ty or rebound. Extremities: No edema, clubbing, or cyanosis. Intact pulses. Skin: No rash. Neurologic: Alert, awake, oriented x3. No acute focal deficits appreciated. Investigations: Troponins x3 are negative. LDL cholesterol was 140. Creatinine is 0.77. Hemoglobi n is 14.1. EKG with no acute ST changes. Assessment And Plan: Chest pain, could be unstable angina since he is having recurrent episodes. Kn own history of mild coronary artery disease per catheterization in 2012 as per his report. Recommend further evaluation with exercise nuclear stress test and continue to trend troponins and obtain echo cardiogram. Thank you for the consult. /GERMÁN Voice ID: [id number] Report ID: [id number]
== END 2020-11-06 17:29 | disposition home or self-care (01) ==
LOC: ER 21:42 → ERHOLD 11-06 02:32 → 2ND 11-06 05:17
PROVIDERS: ADMIT Emergency Medicine; ATTEND Hospitalist
DX: R07.9 Chest pain, unspecified (principal); E78.5 Hyperlipidemia, unspecified; Z85.46 Personal history of malignant neoplasm of prostate; I25.10 Atherosclerotic heart disease of native coronary artery without angina pectoris; Z20.822 Contact with and (suspected) exposure to COVID-19; R94.31 Abnormal electrocardiogram [ECG] [EKG]
CPT/HCPCS: 93005; 85025; 80048; 36415; 83735; 85610; 80061; 80076; 84484 ×3; 83880; 71045; 99285; U0003; J1650; G0378 ×2

== ENCOUNTER 2024-07-25 14:02 | Emergency (ER) | payer OTHER ==
[2024-07-25 16:02] LABS: Absolute Basophils 0.1 K/uL (0-0.5); Absolute Eosinophils 0.1 K/uL (0-0.5); Absolute Lymphocytes (CBC) 1.4 K/uL (0.7-4.9); Absolute Monocytes 0.5 K/uL (0.1-1.3); Absolute Neutrophil 3.5 K/uL (1.8-8.0); Basophils % 1.2 % (0-1.3); Eosinophils % 2.5 % (0-4.4); Hematocrit 40.4 % (39.6-49.0); Hemoglobin 14.1 g/dL (13.6-17.9); Lymphocytes % 25.1 % (15.3-44.8); MCH 32.6 pg (27.0-35.0); MCV 93.1 fL (80-100); MPV 7.4 fL (7.6-11.3); Monocytes % 9.4 % (3.3-12.3); Neutrophils % 61.8 % (41.7-73.7); Nucleated Red Blood Cells % 0.1 % (0-0); Platelets 217 thou/uL (152-406); RBC Red Blood Cell Count 4.34 M/uL (4.33-5.43)
--- NOTE | 2024-07-25 16:11 | RAD REPORT ---
EXAMINATION: ONE VIEW CHEST XR CLINICAL INDICATION: Male, 78 years old.,PAIN TECHNIQUE: Frontal chest projection is submitted. Examination is limited by patient positioning and t echnique. COMPARISON: 11/06/2020 FINDINGS: The lungs are well inflated and clear. No pneumothorax or sizable effusion. The heart is normal in s ize. Mediastinal contours are unremarkable. IMPRESSION: No acute intrathoracic abnormalities.
[2024-07-25 16:20] LABS: Troponin High Sensitivity 6.4 pg/mL (<58.9)
--- NOTE | 2024-07-25 17:23 | ER ---
Nurse's Notes [facility] Name: Vincent Hurd Age: 78 yrs Sex: Male : 1945 Arrival Date: 07/25/2024 Time: 14:02 Bed 19 Private MD: Diagnosis: Muscle spasm of back Presentation: 07/25 14:44 Chief complaint: Patient states: Pain to left scapula X2 weeks. Pt states that the pain cm10 radiates to the front of his chest and movement makes the pain worse. Coronavirus screen: Client denies travel out of the [place] in the last 14 days. Ebola Screen: Patient denies travel to an Ebola-affected area in the 21 days before illness onset. No symptoms or risks identified at this time. Initial Sepsis Screen: Does the patient meet any 2 criteria? No. Patient's initial sepsis screen is negative. Does the patient have a suspected source of infection? No. Patient's initial sepsis screen is negative. Risk Assessment: Do you want to hurt yourself or someone else? Patient reports no desire to harm self or others. Onset of symptoms was July 25, 2024. 14:44 Method Of Arrival: Ambulatory cm10 14:44 Acuity: MEY 3 cm10 Triage Assessment: 14:47 General: Appears in no apparent distress. uncomfortable, Behavior is calm, cooperative. cm10 Pain: Complains of pain in left scapular area Pain radiates to anterior aspect of left upper chest Pain currently is 6 out of 10 on a pain scale. Aggravated by Movement. Neuro: No deficits noted. Level of Consciousness is awake, alert, obeys commands, Oriented to person, place, time, situation, Appropriate for age. Respiratory: No deficits noted. Airway is patent Respiratory effort is even, unlabored, Respiratory pattern is regular, symmetrical. 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 - Infectious Disease History:: Denies. - Social history:: Smoking status: Patient denies any tobacco usage or history of. Screenin:50 [facility] ED Fall Risk Assessment (Adult) History of falling in the last 3 months, rs5 including since admission No falls in past 3 months (0 pts) Confusion or Disorientation No (0 pts) Intoxicated or Sedated No (0 pts) Impaired Gait No (0 pts) Mobility Assist Device Used No (0 pt) Altered Elimination No (0 pt) Score/Fall Risk Level 0 - 2 = Low Risk Oriented to surroundings, Maintained a safe environment. Abuse screen: Denies threats or abuse. Nutritional screening: No deficits noted. Tuberculosis screening: No symptoms or risk factors identified. Assessment: 14:50 General: Appears in no apparent distress. uncomfortable, Behavior is calm, cooperative. rs5 Pain: Complains of pain in back Pain currently is 8 out of 10 on a pain scale. Quality of pain is described as aching, Is continuous. Neuro: Level of Consciousness is awake, alert, obeys commands, Oriented to person, place, time, situation. Cardiovascular: Patient's skin is warm and dry. Respiratory: Airway is patent Respiratory effort is even, unlabored, Respiratory pattern is regular, symmetrical. GI: Abdomen is round non-distended, Abd is soft and non tender X 4 quads. : No signs and/or symptoms were reported regarding the genitourinary system. 14:50 EENT: No signs and/or symptoms were reported regarding the EENT system. Derm: Skin is rs5 intact, Skin is pink, warm \T\ dry. Musculoskeletal: Range of motion: intact in all extremities. 16:01 Reassessment: Patient and/or family updated on plan of care and expected duration. Pain rs5 level reassessed. Patient is alert, oriented x 3, equal unlabored respirations, skin warm/dry/pink. 17:08 Reassessment: Patient and/or family updated on plan of care and expected duration. Pain rs5 level reassessed. Patient is alert, oriented x 3, equal unlabored respirations, skin warm/dry/pink. 17:50 Reassessment: Patient and/or family updated on plan of care and expected duration. Pain rs5 level reassessed. Patient is alert, oriented x 3, equal unlabored respirations, skin warm/dry/pink. Vital Signs: 14:44 BP 147 / 84; Pulse 60; Resp 16; Temp 97.3(TE); Pulse Ox 97% on R/A; Weight 92.99 kg; cm10 Height 5 ft. 11 in. ; Pain 6/10; 15:01 BP 128 / 74; Pulse 74; Resp 17; Pulse Ox 99% on R/A; rs5 17:40 BP 132 / 80; Pulse 66; Resp 17; Pulse Ox 99% on R/A; rs5 14:44 Body Mass Index 28.59 (92.99 kg, 180.34 cm) cm10 14:44 Pain Scale: Adult cm10 ED Course: 14:08 Patient arrived in ED. mg5 14:47 Triage completed. cm10 14:48 Arm band placed on right wrist. Patient placed in an exam room, on a stretcher. cm10 14:50 Patient has correct armband on for positive identification. Placed in gown. Bed in low rs5 position. Call light in reach. Side rails up X2. 14:50 No provider procedures requiring assistance completed. rs5 14:53 Amador Sauceda, RN is Primary Nurse. rs5 15:04 Atul Arguello FNP-C is PHCP. dr5 15:04 Dipesh Shaffer MD is Attending Physician. dr5 16:04 XRAY Chest (1 view) In Process Unspecified. EDMS 17:52 IV discontinued, intact, bleeding controlled, No redness/swelling at site. Pressure rs5 dressing applied. Administered Medications: 17:20 Drug: Ketorolac IM 30 mg IM once Route: IM; Site: left deltoid; rs5 17:20 Drug: HYDROcodone-acetaminophen PO 5 mg-325 mg 1 tabs PO once Route: PO; rs5 Medication: 19:07 VIS not applicable for this client. rs5 Outcome: 17:22 Discharge ordered by . dr5 17:52 Discharged to home ambulatory, rs5 17:52 Condition: stable rs5 17:52 Discharge instructions given to patient, family, Instructed on discharge instructions, follow up and referral plans. Demonstrated understanding of instructions, follow-up care, 17:53 Patient left the ED. rs5 Signatures: Dispatcher [employer] EDMS Amador Sauceda RN RN rs5 Ingrid Roland RN RN [email or web address] Deisy Paul mg5 Atul Arguello FNP-C PRODUCTION CONTROL SCHEDULER-Cdr5 Corrections: (The following items were deleted from the chart) 14:47 14:42 Allergies: tamsulosin; cm10 cm10 19:06 17:20 BP 132 / 80; Pulse 66bpm; Resp 17bpm; Pulse Ox 99% RA; rs5 rs5
--- NOTE | 2024-07-25 17:23 | EDPHYS ---
Physician Documentation [facility] Name: Vincent Hurd Age: 78 yrs Sex: Male : 1945 Arrival Date: 07/25/2024 Time: 14:02 Bed 19 Private MD: ED Physician Dipesh Shaffer HPI: 07/25 17:59 This 78 yrs old Male presents to ER via Ambulatory with complaints of Back dr5 Pain. 17:59 Patient is a 78-year-old male presenting with left-sided shoulder pain is been going on dr5 for 2 weeks. Patient reports mild heavy lifting. Patient has been taking Robaxin, ibuprofen, and Tylenol that helps pain.. 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 - Infectious Disease History:: Denies. - Social history:: Smoking status: Patient denies any tobacco usage or history of. ROS: 17:59 Constitutional: as per hpi Eyes: Negative for injury, pain, redness, and discharge, dr5 ENT: Moist mucous membranes. Neck: Negative for injury, pain, and swelling, Cardiovascular: Negative for chest pain, palpitations, and edema, Respiratory: Negative for shortness of breath, cough, wheezing, and pleuritic chest pain, Back: Negative for injury and pain, : Negative for injury, bleeding, discharge, and swelling, MS/Extremity: Negative for injury and deformity, Neuro: Negative for headache, weakness, numbness, tingling, and seizure, Exam: 17:59 Constitutional: This is a well developed, well nourished patient who is awake, alert, dr5 and in no acute distress. Head/Face: Normocephalic, atraumatic. Eyes: Pupils equal round and reactive to light, extra-ocular motions intact. Lids and lashes normal. Conjunctiva and sclera are non-icteric and not injected. Cornea within normal limits. Periorbital areas with no swelling, redness, or edema. ENT: Nares patent. No nasal discharge, no septal abnormalities noted. Tympanic membranes are normal and external auditory canals are clear. Oropharynx with no redness, swelling, or masses, exudates, or evidence of obstruction, uvula midline. Mucous membranes moist. Chest/axilla: Normal chest wall appearance and motion. Nontender with no deformity. No lesions are appreciated. Cardiovascular: Regular rate and rhythm with a normal S1 and S2. Normal PMI, no JVD. No pulse deficits. Respiratory: Lungs have equal breath sounds bilaterally, clear to auscultation. No rales, rhonchi or wheezes noted. No increased work of breathing, no retractions or nasal flaring. Back: No spinal tenderness. No costovertebral tenderness. Full range of motion. Skin: Warm, dry with normal turgor. Normal color with no rashes, no lesions, and no evidence of cellulitis. Neuro: Awake and alert, GCS 15, oriented to person, place, time, and situation. Cranial nerves II-XII grossly intact. Motor strength 5/5 in all extremities. Sensory grossly intact. Cerebellar exam normal. Normal gait. 18:02 Neuro: Exam negative for acute changes, dr5 Vital Signs: 14:44 BP 147 / 84; Pulse 60; Resp 16; Temp 97.3(TE); Pulse Ox 97% on R/A; Weight 92.99 kg; cm10 Height 5 ft. 11 in. ; Pain 6/10; 15:01 BP 128 / 74; Pulse 74; Resp 17; Pulse Ox 99% on R/A; rs5 17:40 BP 132 / 80; Pulse 66; Resp 17; Pulse Ox 99% on R/A; rs5 14:44 Body Mass Index 28.59 (92.99 kg, 180.34 cm) cm10 14:44 Pain Scale: Adult cm10 MDM: 15:04 Medical Screening Exam initiated dr5 16:08 Differential diagnosis: Pneumonia, muscle strain, fracture. Data reviewed: vital signs, dr5 nurses notes, lab test result(s), EKG, radiologic studies. Consideration of Admission/Observation Escalation of care including admission/observation considered. Considered admission versus escalation of lab work came back abnormal.. Care significantly affected by the following chronic conditions: Cancer, Hyperlipidemia. Care significantly affected by the following Social Determinants of Health: Poor access to healthcare and/or lack of insurance, Poor access to transportation, Problems related to employment. Counseling: I had a detailed discussion with the patient and/or guardian regarding the historical points, exam findings, and any diagnostic results supporting the discharge/admit diagnosis, the presence of at least one elevated blood pressure reading (>120/80) during this emergency department visit, lab results, radiology results, the need for outpatient follow up, for definitive care, a family practitioner, to return to the emergency department if symptoms worsen or persist or if there are any questions or concerns that arise at home. Medication response: Toradol relieved patient's pain. The symptoms have resolved. Response to treatment: the patient's symptoms have resolved after treatment. ED course: Toradol and E[place] given in the ER. All labs and x-rays discussed with patient. Printed out labs so he can take to his primary care doctor. Continue methocarbamol and antiinflammatories. All questions answered.. 07/25 15:42 Order name: Basic Metabolic Panel; Complete Time: 16:20 [facility] 07/25 15:42 Order name: CBC with Diff; Complete Time: 16:06 [facility] 07/25 15:42 Order name: Troponin HS; Complete Time: 16: [facility] 07/25 15:42 Order name: XRAY Chest (1 view); Complete Time: 16: [facility] 07/25 15:42 Order name: Cardiac monitoring; Complete Time: 16: [facility] 07/25 15:42 Order name: EKG - Nurse/Tech; Complete Time: 16: [facility] 07/25 15:42 Order name: IV Saline Lock; Complete Time: 16: [facility] 07/25 15:42 Order name: Labs collected and sent; Complete Time: 16: [facility] 07/25 15:42 Order name: O2 Per Protocol; Complete Time: 16:07/25 15:42 Order name: O2 Sat Monitoring; Complete Time: 16: [facility] EC:08 Rate is 54 beats/min. Rhythm is regular. QRS [place] is Normal. MD interval is normal at dr5 256 msec. QRS interval is normal at 128 msec. QT interval is normal at 444 msec. Administered Medications: 17:20 Drug: Ketorolac IM 30 mg IM once Route: IM; Site: left deltoid; rs5 17:20 Drug: HYDROcodone-acetaminophen PO 5 mg-325 mg 1 tabs PO once Route: PO; rs5 Disposition Summary: 07/25/24 17:22 Discharge Ordered Notes: Location: Home dr5 Condition: Stable dr5 Diagnosis - Muscle spasm of back dr5 Followup: dr5 - With: Emergency Department - When: As needed - Reason: Worsening of condition Followup: dr5 - With: Private Physician - When: 1 - 2 days - Reason: Recheck today's complaints, Continuance of care, Re-evaluation by your physician Discharge Instructions: - Discharge Summary Sheet dr5 - Back Injury Prevention, [id number] dr5 - Back Exercises, [id number] dr5 Forms: - Medication Reconciliation Form dr5 - Patient Portal Instructions dr5 - Leadership Thank You Letter dr5 Signatures: Dispatcher [employer] EDAmador Reyes RN RN rs5 Ingrid Roland RN RN cm10 Atul Arguello, SPOOL SANDER-C [employer]-[facility] Corrections: (The following items were deleted from the chart) 14:47 14:42 Allergies: tamsulosin; cm10 cm10
[2024-07-25] MEDS ORDERED: KETOROLAC 30 MG/ML INJ ONE (17:37)
[2024-07-25] MEDS ORDERED: HYDROCODONE/APAP 5/325 MG TAB ONE (17:38)
[2024-07-25 18:18] VITALS: BP 147/84; TEMP 97.3; O2SAT 97
--- NOTE | 2024-07-27 12:01 | EKG ---
Test Date: 2024-07-25 Test Time: 16:08:10 [employer]: ZOLTAN MEASUREMENT RESULTS: Intervals: Rate: 54 MS: 256 QRSD: 128 QT: 444 QTc: 421 [place]: P: 28 MS: 256 QRS: -69 T: 37 INTERPRETIVE STATEMENTS: Sinus bradycardia with 1st degree AV block Right bundle branch block Left anterior fascicular block Bifascicular block Abnormal ECG Compared to ECG 11/05/2020 21:52:53 Right bundle-branch block now present Bifascicular block now present Sinus rhythm no longer present Left ventricular hypertrophy no longer present Electronically Signed On 07-27-24 12:00:49 [employer] OFFIC[employer] by Valdez Greco
== END 2024-07-25 17:53 | disposition home or self-care (01) ==
LOC: ER 14:02
DX: M62.830 Muscle spasm of back (principal)
CPT/HCPCS: 36415; 71045; 80048; 84484; 85025; 93005